=== PATIENT | female | born 1970 | race African-American/Black ===

== ENCOUNTER 2023-11-15 09:40 | Emergency (ER) | payer OTHER ==
[~2023-11-15] VITALS: Ht 167.6 cm; Wt 127.0 kg
[2023-11-15 09:54] VITALS: O2SAT 100
[2023-11-15] MEDS: ONDANSETRON HCL 4MG/2ML INJ IV STA (10:26)
[2023-11-15 11:12] LABS: BASOPHILS % 0.4 % (0.0-2.0); EOSINOPHILS % 1.4 % (0.0-5.0); HEMATOCRIT. 31.1 % (36.0-48.0); HEMOGLOBIN. 10.4 g/dL (12.0-16.0); LYMPHOCYTES % 20.5 % (20.0-50.0); MEAN CORPUSCULAR HEMOGLOBIN 32.3 pg (28.0-32.0); MEAN CORPUSCULAR HGB CONC 33.6 g/dL (31.0-37.0); MEAN CORPUSCULAR VOLUME 96.4 fL (81.0-99.0); MEAN PLATELET VOLUME 7.5 fl (7.4-10.4); MONOCYTES % 8.6 % (2.0-8.0); NEUTROPHILS % 69.1 % (40.0-76.0); PLATELET 390 x1000/uL (130-400); RED BLOOD CELL COUNT 3.23 mill/uL (4.2-5.4); WHITE BLOOD COUNT 9.3 x1000/uL (4.5-11.0)
[2023-11-15 11:22] LABS: PROTHROMBIN TIME 11.3 sec (9.6-11.0)
[2023-11-15 11:26] LABS: ALANINE AMINOTRANSFERASE 13 IU/L (10-49); ALBUMIN 4.1 g/dL (3.2-4.8); ASPARTATE AMINOTRANSFERASE 14 IU/L (<34); BILIRUBIN TOTAL 0.4 mg/dL (0.1-1.0); CALCIUM 9.5 mg/dL (8.7-10.4); CARBON DIOXIDE 24 mEq/L (21-32); CHLORIDE 110 mEq/L (98-107); CREATININE 1.6 mg/dL (0.6-1.0); GLUCOSE 119 mg/dL (70-105); POTASSIUM 4.9 mEq/L (3.5-5.1); PROTEIN TOTAL 6.9 g/dL (6.0-8.3); SODIUM 140 mEq/L (136-145); UREA NITROGEN BLOOD 34 mg/dL (9-23)
[2023-11-15 12:00] VITALS: BP 139/88; PULSE 95; RESP 17; TEMP 98.5
[2023-11-15] MEDS ORDERED: ACET-2708 MT (12:15)
[2023-11-15] MEDS ORDERED: ONDA4TAB50 MT (12:15)
[2023-11-15] MEDS ORDERED: FAMO-135 MT (12:15)
== END 2023-11-15 12:30 | disposition home or self-care (01) ==
LOC: ER 10:48
DX: R10.13 Epigastric pain (principal); E11.9 Type 2 diabetes mellitus without complications; I10 Essential (primary) hypertension
CPT/HCPCS: 99283; 80053; 83880; 83690; 85025; 85610; 36415; J2405

== ENCOUNTER 2024-03-13 08:01 | Emergency (ER) | payer OTHER ==
[~2024-03-13] VITALS: Ht 162.6 cm; Wt 91.0 kg
[~2024-03-13 08:01] MED LIST: ACET-2708 MT; FAMO-135 MT; ONDA4TAB50 MT
[2024-03-13 08:03] VITALS: O2SAT 99
[2024-03-13 10:20] LABS: BASOPHILS % 0.4 % (0.0-2.0); HEMOGLOBIN. 10.7 g/dL (12.0-16.0); LYMPHOCYTES % 20.6 % (20.0-50.0); MEAN CORPUSCULAR HEMOGLOBIN 31.5 pg (28.0-32.0); MEAN CORPUSCULAR HGB CONC 32.3 g/dL (31.0-37.0); MEAN CORPUSCULAR VOLUME 97.5 fL (81.0-99.0); MEAN PLATELET VOLUME 7.4 fl (7.4-10.4); MONOCYTES % 9.7 % (2.0-8.0); NEUTROPHILS % 67.3 % (40.0-76.0); PLATELET 363 x1000/uL (130-400); RED BLOOD CELL COUNT 3.38 mill/uL (4.2-5.4); RED CELL DISTRIBUTION WIDTH 13.6 % (11.6-14.6); WHITE BLOOD COUNT 8.7 x1000/uL (4.5-11.0)
[2024-03-13 10:30] LABS: CHLORIDE 111 mEq/L (98-107); POTASSIUM 5.1 mEq/L (3.5-5.1); SODIUM 141 mEq/L (136-145)
[2024-03-13 10:31] LABS: CALCIUM 9.9 mg/dL (8.7-10.4); CARBON DIOXIDE 27 mEq/L (21-32)
[2024-03-13 10:36] LABS: GLUCOSE 144 mg/dL (70-105); UREA NITROGEN BLOOD 39 mg/dL (9-23)
[2024-03-13 10:37] LABS: TROPONIN I HIGH SENSITIVITY 5 ng/L (3.0-34)
[2024-03-13 10:51] LABS: CREATININE 2.1 mg/dL (0.6-1.0)
[2024-03-13 11:20] VITALS: BP 149/55; PULSE 60; RESP 20; TEMP 98.4
== END 2024-03-13 11:22 | disposition home or self-care (01) ==
LOC: ER 08:01
DX: M79.89 Other specified soft tissue disorders (principal); Z90.49 Acquired absence of other specified parts of digestive tract
CPT/HCPCS: 36415; 71045; 80048; 83880; 84484; 85025; 99284

== ENCOUNTER 2024-03-23 10:31 | Emergency (ER) | payer OTHER ==
[~2024-03-23] VITALS: Ht 170.2 cm; Wt 100.0 kg
[2024-03-23 10:59] VITALS: O2SAT 100
[2024-03-23] MEDS ORDERED: T3 PO (14:17)
[2024-03-23] MEDS ORDERED: DICL100G32 TP (14:17)
[2024-03-23] MEDS: ACETAMINOPHEN WITH CODEINE 300/30MG TABLET PO NR (15:02)
[2024-03-23 15:10] VITALS: BP 155/88; PULSE 97; RESP 18; TEMP 36.94740; O2SAT 100
== END 2024-03-23 15:11 | disposition home or self-care (01) ==
LOC: ER 10:43
DX: S46.811A Strain of other muscles, fascia and tendons at shoulder and upper arm level, right arm, initial encounter (principal); E11.9 Type 2 diabetes mellitus without complications; I10 Essential (primary) hypertension; Z98.890 Other specified postprocedural states; Z79.899 Other long term (current) drug therapy; W01.0XXA Fall on same level from slipping, tripping and stumbling without subsequent striking against object, initial encounter; Y93.89 Activity, other specified; Y92.89 Other specified places as the place of occurrence of the external cause; Y99.8 Other external cause status
CPT/HCPCS: 73030; 99283